=== PATIENT | female | born 1985 | race Caucasian/White ===

== ENCOUNTER → 2024-02-14 | Outpatient (REF) | LOC: M LAB 09:35 | PROVIDERS: ATTEND Nurse Practitioner Adult Health | DX: Z00.00 Encounter for general adult medical examination without abnormal findings (principal) ==

== ENCOUNTER 2024-04-11 08:17 | Emergency (ER) | payer OTHER ==
[~2024-04-11] VITALS: Ht 157.5 cm; Wt 102.2 kg
[2024-04-11] MEDS ORDERED: NALT50TA4 PO (08:33)
[2024-04-11] MEDS: ACETAMINOPHEN 500 MG TAB PO ONE (09:53)
[2024-04-11] MEDS: ONDANSETRON 4MG 2ML VIAL IV ONE (09:53)
[2024-04-11] MEDS: NS 1,000 ML IV ONE (09:53)
[2024-04-11 11:28] VITALS: BP 162/84; TEMP 97.8; O2SAT 97
== END 2024-04-11 12:06 | disposition home or self-care (01) ==
LOC: M ED 08:17
DX: R41.82 Altered mental status, unspecified (principal); T88.7XXA Unspecified adverse effect of drug or medicament, initial encounter; X58.XXXA Exposure to other specified factors, initial encounter; Y92.89 Other specified places as the place of occurrence of the external cause; Y93.89 Activity, other specified; Y99.8 Other external cause status; J45.909 Unspecified asthma, uncomplicated; F32.A Depression, unspecified; Z79.899 Other long term (current) drug therapy
CPT/HCPCS: 96374; 99284; J2405

== ENCOUNTER → 2025-03-20 | Outpatient (CLI) | payer OTHER ==
[~2025-03-20] MED LIST: NALT50TA4 PO
== END ==
LOC: M CARPUL 12:34
PROVIDERS: ATTEND Physician Assistant
DX: R06.00 Dyspnea, unspecified (principal)

== ENCOUNTER → 2025-03-26 | Outpatient (CLI) | payer OTHER | LOC: M RAD 16:58 | PROVIDERS: ATTEND Physician Assistant | DX: R06.00 Dyspnea, unspecified (principal) ==

== ENCOUNTER → 2025-04-24 | Outpatient (CLI) | payer OTHER ==
[~2025-04-24] MED LIST changes: +METHACHOLINE KIT (6 VIAL.NEB PREMIX) INH ONE
== END ==
LOC: M CARPUL 07:42
PROVIDERS: ATTEND Physician Assistant
DX: R06.00 Dyspnea, unspecified (principal)

== ENCOUNTER 2025-07-22 09:58 | Day surgery (SDC) | payer OTHER ==
[~2025-07-22] VITALS: Ht 157.5 cm; Wt 112.6 kg
[~2025-07-22 09:58] MED LIST changes: +ALBU8.5H; +BUDE10.2; +BUPR150T12 PO; +CETI-24 PO; +FLUO-365 PO; +HYDR-3363 PO; +LIDOCAINE 2% 100 MG/5 ML SDV (FOR ANES.) As Ordered ONE; +LOSA50TA28 PO; -METHACHOLINE KIT (6 VIAL.NEB PREMIX) INH ONE; +MONT10TA97 PO; +ONDANSETRON 4MG/2ML VIAL As Ordered ONE; +VITA100093 PO; +dexAMETHasone 4 MG/ML 1 ML VIAL As Ordered ONE
[2025-07-22] MEDS ORDERED: SCOPOLAMINE 1MG TRANSDERMAL PATCH TOP ONE ×2 (10:15→13:15)
[2025-07-22 10:38] LABS: BASO # 0.0 10^3/uL (0.0-0.2); BASO % 0.5 % (0.0-1.0); EOS # 0.1 10^3/uL (0.0-0.5); EOS % 1.3 % (0.0-3.0); LYMPH # 1.7 10^3/uL (1.5-5.0); LYMPH % 23.1 % (24.0-44.0); MONO # 0.5 10^3/uL (0.0-0.8); MONO % 6.0 % (2.0-8.0); NEUTROPHILS # 5.2 10^3/uL (1.5-8.5); NEUTROPHILS % 68.8 % (36.0-66.0); PLATELET COUNT, AUTOMATED 270 10^3/uL (150-450)
[2025-07-22] MEDS: ACETAMINOPHEN 500 MG TAB PO ONE (10:39)
[2025-07-22] MEDS: SCOPOLAMINE 1MG TRANSDERMAL PATCH TOP ONE (10:39)
[2025-07-22] MEDS ORDERED: MIDAZOLAM INJ 2 MG/2 ML VIAL As Ordered ONE (12:46)
[2025-07-22] MEDS ORDERED: KETOROLAC 30 MG/ML 1 ML VIAL As Ordered ONE (12:48)
[2025-07-22] MEDS: LR 1,000 ML IV SCH (13:15)
[2025-07-22] MEDS: IODINE STRONG SOLN 15 ML BTL As Ordered ONE (14:05)
[2025-07-22] MEDS: FAMOTIDINE 20 MG/2 ML VIAL IVP ONE (14:05)
[2025-07-22] MEDS: LIDOCAINE W/EPINEPHrine 1% 20 ML VIAL As Ordered ONE (14:28)
[2025-07-22] MEDS ORDERED: MORPHINE 4 MG/ML 1 ML VIAL IV PRN (14:50)
[2025-07-22] MEDS ORDERED: HYDROMORPHONE HCL 0.5 MG/0.5 ML SYRINGE IV PRN (14:50)
[2025-07-22] MEDS: SILVER NITRATE APPLICATOR (1 = QTY 10) As Ordered ONE (14:54)
[2025-07-22 15:37] VITALS: BP 132/71; TEMP 98.9; O2SAT 97
== END 2025-07-22 15:39 | disposition home or self-care (01) ==
LOC: M SDC 09:58
PROVIDERS: ATTEND General Practice
DX: D06.0 Carcinoma in situ of endocervix (principal); N84.1 Polyp of cervix uteri; N72 Inflammatory disease of cervix uteri; I10 Essential (primary) hypertension; J45.909 Unspecified asthma, uncomplicated; F41.9 Anxiety disorder, unspecified; F32.A Depression, unspecified; Z79.899 Other long term (current) drug therapy; Z98.51 Tubal ligation status
CPT/HCPCS: 36415; 57520; 81025; 85025; 88305; 88307; J1100; J1885; J2250; J2405; J3010